=== PATIENT | female | born 1950 | race Caucasian/White ===

== ENCOUNTER → 2020-12-15 | Day surgery (SDC) | payer OTHER ==
[~2020-12-15] MED LIST: CLARITIN10 MG PO; ENBRACE HR SOF1 EACH PO; GLUCOTROL5 MG PO; IBUPROFEN 600600 M1 PO; LEVO-T25 MCG PO; LEXAPRO20 MG PO; LIPITOR 20 MG T20 M1 PO; MAGNESIUM250 M1 PO; NEXIUM20 MG PO; POTASSIUM20 PO; REXULTI0.25 MG PO; TIZANIDINE HCL4 M1 PO; VITAMIN B-121000 MC2 SUBLING; XANAX 0.25 MG0.25 MG PO; [UNRECOGNIZED DRUG - OTHER]
--- NOTE | ~2020-12-15 | OP ---
[address] [address] OPERATIVE REPORT Name: MELANY AYALA Room: [facility].#: [id number] Admission: 12/15/20 Attend Phys: Jeyson Julien MD Discharge: Date of : 54 Report #: [id number] THIS REPORT FOR: cc: Nathaniel Hammer Timothy J. Haggard,Jeyson Heck MD ~ DOC #: [id number] Jeyson Julien MD DATE OF SURGERY: 12/15/2020 PREOPERATIVE DIAGNOSIS: A 4-mm proximal left ureteral stone. POSTOPERATIVE DIAGNOSIS: A 4-mm proximal left ureteral stone. PROCEDURES: Cystoscopy, left retrograde pyelogram, left ureteroscopy with stone extraction. STAFF SURGEON: Jeyson Julien MD. ANESTHESIA: General. ESTIMATED BLOOD LOSS: None. COMPLICATIONS: None. SPECIMENS: Left ureteral stone fragment. DRAINS: None. INDICATIONS: The patient is a very pleasant 70-year-old white female with metastatic breast cancer, found to have a 5-mm mid right ureteral stone that was removed about 6 weeks ago on routine followup. She had a KUB, indicated that she could have a 4-mm stone in the proximal left ureter. Ultrasound showed hydronephrosis. As well as a CT scan confirmed that the stone in her kidney had migrated into the proximal ureter, had some proximal hydronephrosis. She now presents for cystoscopy, left retrograde pyelogram, left ureteroscopy, possible holmium laser lithotripsy, possible placement of left ureteral stent. After the risks and benefits of the procedure explained, an informed consent was obtained. DESCRIPTION OF PROCEDURE: The patient was taken to the operating room, comfortably placed in the dorsal lithotomy position under adequate general anesthesia. She was sterilely prepped and draped in sterile fashion exposing only the genitalia. She received her antibiotic therapy as prescribed. Appropriate time-out was carried out and all were in agreement. A 22-Yemeni cystoscope with the obturator in place was inserted into the urethra. The obturator was removed, draining clear natalie-colored urine[place] [address] OPERATIVE REPORT Name: MELANY AYALA Room: [facility].#: [id number] Admission: 12/15/20 Attend Phys: Jeyson Julien MD Discharge: Date of : 54 Report #: [id number] systematically viewed. Both ureteral orifices were identified. Left side seemed a little more dilated consistent with somebody with a relatively recent stent. An 8-Yemeni cone-tipped catheter placed in the left ureteral orifice and a retrograde pyelogram performed showing kind of a greater than average capacity ureter all the way up to a filling defect in the proximal ureter with more proximal dilation. Attempted to place a guidewire up the left ureter, was having some difficulty, elected to just go ahead and put the ureteroscope. A 4.5-Yemeni tapered to a 6.5-Yemeni Batista semi-rigid ureteroscope, advanced through the urethra up the left ureter, was able to pass all the way up to the level of the stone, was able to grasp the stone with a 2.4-Yemeni flat wire basket and slowly extracted intact without difficulty. Repeat ureteroscopy showed no damage to the ureter and no other stone fragments remained. The ureteroscope was then removed. We elected not to place a stent. A cystoscope was brought back again and drained what fluid was in her bladder. The cystoscope was removed. She tolerated the procedure extremely well. She was extubated in the operating room, transferred to [facility] with assistance and went to recovery in stable condition. We will see her back in office in 6 weeks with a renal ultrasound. Jeyson SHABAZZ/JUDAH/JOSUÉ By: [id number] Julien MD /millie
[2020-12-15 14:44] LABS: HEMATOCRIT 28.9 % (37.0-47.0); HEMOGLOBIN 9.7 gm/dL (12.0-15.0); MCH 29.5 pg (26.0-34.0); MCHC 33.6 g/dL (28.0-37.0); MCV 87.8 fL (80.0-100.0); MPV 6.5 fl. (7.2-11.1); RBC 3.29 mil/uL (4.20-5.00); RDW-CV 16.3 % (10.5-14.5); WBC 5.3 thou/uL (4.0-11.0)
[2020-12-15 15:00] LABS: CALCIUM 9.1 mg/dL (8.5-10.1); CREATININE 0.7 mg/dL (0.6-1.3); POTASSIUM 3.9 mmol/L (3.5-5.1)
--- NOTE | 2020-12-15 17:47 | EKG ---
[place] [address] ELECTROCARDIOGRAM REPORT Name: MELANY AYALA Room: [facility]#: [id number] Admission: 12/15/20 Attend Phys: Jeyson Julien MD Discharge: Date of : 54 Date of Service: 12/15/20 1421 Report #: [id number] THIS REPORT FOR: //name// [facility] ED Test Date: 2020-12-15 Test Time: 14:21:17 Pat Name: MELANY AYALA Department: Room: Gender: F Plaster Applicator: SARTHAK : 1950 Requested By: Shelly Asher Order Number: [id number] Reading MD: Timur Adams Measurements Intervals [place] Rate: 133 P: 43 TN: 129 QRS: 9 QRSD: 88 T: -58 QT: 328 QTc: 488 Interpretive Statements Sinus tachycardia Low voltage, extremity leads Delayed R wave progression, consider anterior infarct Baseline wander in lead(s) II,III,aVR,aVL,aVF,V1,V2 No previous ECG available for comparison Electronically Signed On 12-15-2020 17:47:34 CDT by Timur Adams [email or web address] <ELECTRONICALLY SIGNED> By: Timur Adams MD, FACC 12/15/20 1747 1421 1421 Timur Adams MD, FAC /EPI
== END | disposition home or self-care (01) ==
LOC: M.SUR 12:09
PROVIDERS: Anesthesiology; ATTEND Urology
DX: N13.2 Hydronephrosis with renal and ureteral calculous obstruction (principal); Z87.442 Personal history of urinary calculi; Z85.3 Personal history of malignant neoplasm of breast; Z98.890 Other specified postprocedural states; Z79.899 Other long term (current) drug therapy; Z88.2 Allergy status to sulfonamides; Z88.8 Allergy status to other drugs, medicaments and biological substances